=== PATIENT | male | born 1955 | race Two or more races ===

== ENCOUNTER 2020-07-29 07:55 | Emergency (ER) | payer SELFPAY ==
[~2020-07-29] VITALS: Ht 172.7 cm; Wt 83.5 kg
[~2020-07-29 07:55] MED LIST: DOC100C PO
[2020-07-29 08:01] VITALS: BP 110/75
[2020-07-29] MEDS ORDERED: KETOROLAC TROMETH 60MG/2ML VIAL IM ONE (08:15)
== END 2020-07-29 09:15 | disposition home or self-care (01) ==
LOC: ER 07:55
DX: S39.012A Strain of muscle, fascia and tendon of lower back, initial encounter (principal); M51.37 Other intervertebral disc degeneration, lumbosacral region; M54.16 Radiculopathy, lumbar region; F17.210 Nicotine dependence, cigarettes, uncomplicated; X50.9XXA Other and unspecified overexertion or strenuous movements or postures, initial encounter; Y93.89 Activity, other specified; Y92.89 Other specified places as the place of occurrence of the external cause; Y99.8 Other external cause status
CPT/HCPCS: 72100; 93005; 96372; 99283; J1885